=== PATIENT | female | born 1980 | race African-American/Black ===

== ENCOUNTER 2017-03-29 14:35 | Emergency (ER) | payer BC, OTHER ==
[~2017-03-29] VITALS: Ht 157.5 cm; Wt 77.1 kg
[~2017-03-29 14:35] MED LIST: AMOXICILLIN 50500 MG PO; NAPROSYN500 MG PO; PREDNISONE 20 M20 MG PO; WAL-PROFEN200 M1 PO
[2017-03-29 14:36] VITALS: BP 124/82
[2017-03-29] MEDS ORDERED: PEPCID20 MG PO (14:40)
[2017-03-29 14:55] LABS: URINE BILIRUBIN NEGATIVE (Negative); URINE BLOOD 3+ (Negative); URINE COLOR YELLOW; URINE GLUCOSE-RANDOM* NEGATIVE (Negative); URINE KETONES NEGATIVE (Negative); URINE NITRITE NEGATIVE (Negative); URINE PROTEIN (DIPSTICK) 2+ (Negative); URINE SPECIFIC GRAVITY 1.025 (1.005-1.035); URINE UROBILINOGEN 0.2 E.U./dl (0.2-1.0)
[2017-03-29 15:01] LABS: BACTERIA >30 Many /HPF (None Seen); CASTS None Seen /LPF (None Seen); CRYSTALS None Seen /LPF (None Seen); SQUAMOUS 4-10 Moderate /LPF (0-3); URINE WBC >25 Many /HPF (0-5)
[2017-03-29] MEDS ORDERED: PHENAZOPYRIDIN200 M2 PO (15:09)
[2017-03-29] MEDS ORDERED: KEFLEX500 M1 PO (15:09)
== END 2017-03-29 15:28 | disposition home or self-care (01) ==
LOC: ER 14:35
PROVIDERS: Physician Assistant
DX: N39.0 Urinary tract infection, site not specified (principal); J06.9 Acute upper respiratory infection, unspecified

== ENCOUNTER 2019-05-02 17:30 | Emergency (ER) | payer OTHER ==
[~2019-05-02] VITALS: Ht 152.4 cm; Wt 74.4 kg
[~2019-05-02 17:30] MED LIST changes: +KEFLEX500 M1 PO; +PEPCID20 MG PO; +PHENAZOPYRIDIN200 M2 PO
[2019-05-02] MEDS ORDERED: NAPROSYN500 MG PO (19:11)
[2019-05-02] MEDS ORDERED: NORFLEX100 MG PO (19:11)
[2019-05-02 19:27] VITALS: BP 114/75
== END 2019-05-02 19:27 | disposition home or self-care (01) ==
LOC: ER 17:30
DX: S76.811A Strain of other specified muscles, fascia and tendons at thigh level, right thigh, initial encounter (principal); X58.XXXA Exposure to other specified factors, initial encounter; Y93.89 Activity, other specified; Y92.89 Other specified places as the place of occurrence of the external cause; Y99.8 Other external cause status

== ENCOUNTER 2021-02-18 14:17 | Emergency (ER) | payer OTHER ==
[~2021-02-18] VITALS: Ht 152.4 cm; Wt 73.9 kg
[~2021-02-18 14:17] MED LIST changes: +NORFLEX100 MG PO
[2021-02-18 14:45] VITALS: BP 129/83
[2021-02-18] MEDS ORDERED: ACID CONTROLLER20 MG PO (14:49)
[2021-02-18] MEDS ORDERED: PROAIR HFA8.5 GM INH (14:50)
[2021-02-18] MEDS ORDERED: TESSALON PERLE100 MG PO (15:40)
== END 2021-02-18 16:21 | disposition home or self-care (01) ==
LOC: ER 14:17
PROVIDERS: Nurse Practitioner
DX: R05.9 Cough, unspecified (principal); Z20.822 Contact with and (suspected) exposure to COVID-19; J45.909 Unspecified asthma, uncomplicated; Z86.16 Personal history of COVID-19; Z79.51 Long term (current) use of inhaled steroids; Z79.899 Other long term (current) drug therapy